=== PATIENT | male | born 1955 | race Caucasian/White ===

== ENCOUNTER 2017-11-09 05:01 | Day surgery (SDC) | payer MEDICARE ==
[~2017-11-09] VITALS: Ht 175.3 cm; Wt 121.1 kg
[2017-11-09] VITALS (14 sets, daily range): BP systolic 123–152; BP diastolic 68–87; Ht 175.3 cm; Wt 121.1 kg
--- NOTE | ~2017-11-09 | OP ---
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 PROCEDURE: Anterior cervical discectomy and fusion at C4-C5 with a separate anterior cervical plate and screws, PEEK interbody cage; and then an anterior cervical discectomy and fusion at C6-C7 was separate anterior cervical plate, PEEK interbody cage; Gina bone allograft with bone stem cells C6-C7 and C4-C5; removal of osteophytes at C4-C5 and C6-C7. SURGEON: Melyssa Wheeler MD PRIMARY CARE DOCTOR: Dr. Rodriguez in [place], [place]. DESCRIPTION OF TECHNIQUE: After induction of general endotracheal anesthesia, the patient was positioned supine on the operating table with interscapular roll. The neck was prepped and draped in usual sterile fashion. Fluoroscopic x-ray and [place] dissector localized the C4-C5 and C6-C7 interspaces. A transverse skin incision was carried out from midline to the sternocleidomastoid muscle. The platysma was divided with Bovie cautery. Using blunt and sharp dissection with Metzenbaum scissors, I proceeded in the avascular plane medial to the carotid sheath. The C4-C5 and C6-C7 interspaces were exposed given that the last longus colli muscles were elevated at C4-C5 and C6-C7. Self-retaining retractors placed at each level. The Weiner distracting pins were placed at the bodies of C4-C5 and C6-C7. The disc material was incised with a #11 blade at each interspace. The disc material was removed with pituitary rongeurs and curettes. The endplates were prepared at C4-C5 and C6-C7 with curettes. Posteriorly, a Midas-Jak drill and microscope were used to remove osteophyte cells of the posterior longitudinal ligament at C4-C5 and C6-C7. PEEK interbody cages were placed at each interspace under distraction with the Weiner distracting pins. A Zavation anterior cervical plate and screws was used to span the C4-C5 and C6-C7 interspaces. A separate plate was used for each level. Locking cams were tightened down over screw heads. Good position of the hardware was confirmed with fluoroscopic x-ray. Meticulous hemostasis was maintained throughout the wound. The wound was irrigated with copious amounts of Ancef irrigant solution. The platysma and subdermal layer were used to close the wound in interrupted layers. The skin was reapproximated with Steri-Strips and benzoin. A sterile dressing was applied to the wound. The patient was awakened in good condition and taken to recovery. All counts were reported as correct. Estimated blood loss was minimal. TRANSINT:[id number] Voice Confirmation ID: [id number] DOCUMENT ID: [id number] OPERATIVE REPORT [id number] WON GONGORA JR, JOHN MD at 1428 CC: [id number] DICTATION DATE: 11/15/17601 PICKER MACHINE OPERATOR: 11/15/17 1235 [facility] 11/10/[address] [address]
[2017-11-09 08:57] LABS: HEMATOCRIT 41.8 % (42.0-54.0); HEMOGLOBIN 14.3 g/dL (13.5-17.5); MCH 29.5 pg (26.0-34.0); MCHC 34.2 g/dL (31.0-37.0); MCV 86.2 fL (80.0-100.0); MEAN PLATELET VOLUME 9.3 fL (7.4-10.4); RBC 4.85 10x6/uL (4.20-6.10); RDW 13.6 % (11.5-14.5); WBC 9.1 10x3/uL (4.8-10.8)
[2017-11-09] MEDS ORDERED: MULTIPLE VITAMI1 TA1 PO (10:12)
[2017-11-09] MEDS ORDERED: NEURONTIN600 MG PO (10:13)
[2017-11-09] MEDS ORDERED: CYCLOBENZAPRINE10 MG PO (10:14)
[2017-11-09] MEDS ORDERED: OMEPRAZOLE20 M1 PO (10:15)
[2017-11-09] MEDS ORDERED: NORCO 7.5/325 T1 TA1 PO (10:15)
[2017-11-09] MEDS ORDERED: TOPAMAX25 MG PO (10:16)
[2017-11-09] MEDS ORDERED: NORVASC5 MG PO (10:16)
[2017-11-09] MEDS ORDERED: VASOTEC20 MG PO (10:16)
[2017-11-09] MEDS ORDERED: PAXIL30 MG PO (10:17)
[2017-11-09] MEDS ORDERED: COREG12.5 MG PO (10:18)
[2017-11-09] MEDS ORDERED: VALIUM10 MG PO (10:18)
[2017-11-09] MEDS ORDERED: STOOL SOFTENER100 M1 PO (10:18)
[2017-11-09] MEDS ORDERED: CARAFATE1 G PO (10:26)
[2017-11-09] MEDS ORDERED: GLUCOTROL 5 MG T5 MG PO (10:26)
[2017-11-09 10:55] LABS: ANION GAP 14.3 mmol/L (8-16); CALCIUM 8.3 mg/dL (8.5-10.1); CARBON DIOXIDE 24.5 mmol/L (21.0-32.0); CREATININE - SERUM 1.2 mg/dL (0.6-1.3); POTASSIUM - SERUM 3.8 mmol/L (3.5-5.1)
[2017-11-10] VITALS (9 sets, daily range): BP systolic 102–149; BP diastolic 59–73
[2017-11-10] MEDS ORDERED: HYDROCODONE-APA1 TAB PO (11:35)
== END 2017-11-10 12:40 | disposition home or self-care (01) ==
LOC: D.OPS 05:01 → D.CVICU 05:01 → D.OPS 08:29 → D.PAN 10:15 → D.OPS 10:15 → D.PAN 10:45 → D.OPS 11:45 → D.PAN 12:15 → D.CVICU 15:18 → D.OPS 15:18
PROVIDERS: Anesthesiology
DX: M25.78 Osteophyte, vertebrae (principal); Z98.1 Arthrodesis status; M50.223 Other cervical disc displacement at C6-C7 level; Z01.812 Encounter for preprocedural laboratory examination

== ENCOUNTER 2019-07-28 08:17 | Day surgery (SDC) | payer MEDICARE ==
[~2019-07-28] VITALS: Ht 172.7 cm; Wt 108.9 kg
--- NOTE | ~2019-07-28 | OP ---
PATIENT NAME: WON GONGORA JR MEDICAL RECORD: [id number] :55 LOCATION:[facility] ADMISSION DATE: SURGEON: MELYSSA WHEELER MD DATE OF OPERATION: 07/28/2019 PREOPERATIVE DIAGNOSES: Lumbar spinal stenosis and foraminal stenosis, L4-L5 on the left. SURGEON: Melyssa Wheeler MD NAME OF PROCEDURE: Left L4-L5 laminectomy, medial facetectomy and foraminotomy with METRx retractor L4-L5 on the left. DESCRIPTION AND TECHNIQUE: After induction of general endotracheal anesthesia, the patient was rolled prone on the Paco frame. The lumbar spine was prepped and draped in usual sterile fashion. Fluoroscopic x-ray and spinal needle localized the L4-L5 interspace on the left side. A series of dilators were used to advance a METRx retractor at the L4-L5 interspace on the left. The level was confirmed with fluoroscopic x-ray. A microscope and Midas Jak drill were used to perform laminotomy, medial facetectomy and foraminotomy at L4-L5 on the left. Hypertrophied ligamentum flavum was removed with Cloward rongeurs. The bone work set was extended laterally with Cloward rongeurs. Following the removal of the ligamentum flavum, the L4-L5 nerve roots appeared to be decompressed well. Meticulous hemostasis was maintained throughout the wound. Wound was irrigated with copious amounts of Ancef irrigant solution. The platysma and subdermal layer closed with a 3-0 Vicryl suture. The skin was reapproximated with Steri-Strips and benzoin. A sterile dressing was applied and the patient was awakened in good condition, taken to recovery. All counts reported as correct. Estimated blood loss was minimal. TRANSINT:[id number] Voice Confirmation ID: [id number] DOCUMENT ID: [id number] MELYSSA WHEELER MD CC: [id number] DICTATION DATE: 08/15/19 0753 POT BUILDER: 08/15/19 0855 [facility] 07/28/19 [place] [id number]
[~2019-07-28 08:17] MED LIST: CARAFATE1 G PO; COREG12.5 MG PO; CYCLOBENZAPRINE10 MG PO; GLUCOTROL 5 MG T5 MG PO; HYDROCODONE-APA1 TAB PO; LIPITOR10 MG PO; MULTIPLE VITAMI1 TA1 PO; NEURONTIN600 MG PO; NORCO 7.5/325 T1 TA1 PO; NORVASC5 MG PO; OMEPRAZOLE20 M1 PO; PAXIL30 MG PO; STOOL SOFTENER100 M1 PO; TOPAMAX25 MG PO; VALIUM10 MG PO; VASOTEC20 MG PO; ZANAFLEX4 MG PO
[2019-07-28 08:49] LABS: HEMATOCRIT 45.9 % (42.0-54.0); HEMOGLOBIN 15.1 g/dL (13.5-17.5); MCH 29.7 pg (26.0-34.0); MCHC 32.9 g/dL (31.0-37.0); MCV 90.4 fL (80.0-100.0); MEAN PLATELET VOLUME 9.4 fL (7.4-10.4); RBC 5.08 10x6/uL (4.20-6.10); RDW 13.3 % (11.5-14.5); WBC 8.4 10x3/uL (4.8-10.8)
[2019-07-28 08:55] LABS: ANION GAP 13.8 mmol/L (8-16); CALCIUM 9.1 mg/dL (8.5-10.1); CARBON DIOXIDE 27.5 mmol/L (21.0-32.0); CREATININE - SERUM 1.2 mg/dL (0.6-1.3); POTASSIUM - SERUM 4.3 mmol/L (3.5-5.1)
[2019-07-28 09:53] VITALS: BP 98/54; Ht 172.7 cm; Wt 108.9 kg
[2019-07-28] MEDS ORDERED: HYDROCODON-ACE1 EA10 PO (12:55)
--- NOTE | 2019-07-28 14:34 | NUR ---
1411-REC'D FROM RR. DROWSY,EASILY AROUSED WITH VERBAL STIMULI. DENIES PAIN. DRESSING TO BACK CDI. VSS-REQUIRING 3L/NC OF OXYGEN TO MAINTAIN PULSE OX. REVIEWED DISCHARGE CRITERIA WITH PT AND SON,AT BEDSIDE. CL IN EASY REACH. ICE WATER AT BEDSIDE IN EASY REACH.
--- NOTE | 2019-07-28 14:55 | NUR ---
1411-REMOVED INFILTRATED IV FROM RIGHT HAND WITH CATH INTACT,DISPOSED INTO SHARPS,COVERED WITH GUAZE,SECURED WITH MEDIPORE TAPE.
--- NOTE | 2019-07-28 14:56 | NUR ---
0355-FULL LIQUID TRAY TO ROOM. DISCOMFORT PAIN 2/10 TO BACK, DENIES RADIATING PAIN.
--- NOTE | 2019-07-28 17:31 | NUR ---
1515-REPORTS PAIN 5/10 TO INCISIONAL SITE OF BACK. SMALL SHADOW OF BLOOD TO DRESSING. VSS. IS ON ROOM AIR.NO DISTRESS. REQUEST PAIN MED BEFORE DISCHARGE DUE TO 1.[address]
--- NOTE | 2019-07-28 17:35 | NUR ---
1533-ADMINISTERED NORCO 10/325MG 1 BY MOUTH FOR INCISIONAL PAIN. RATES 5/10. DRESSING CONTINUE TO HAVE SMALL SHADOW OF BLOOD. NO ACTIVE BLEEDING. NO DISTRESS. RIGHT HAND WITH SOME EDEMA FROM IV INFILTRATION IN RR. INSTRUCTED TO ELEVATE AND APPLY WARM MOIST HEAT. CONTACT PCP IF WORSENING OF EDEMA,WARMTH TO TOUCH OR ANY INCREASE PAIN TO HAND. VERBALIZED UNDERSTANDING
--- NOTE | 2019-07-28 17:39 | NUR ---
1547-PT DRESSED. AMBULATED TO RESTROOM AND VOIDED WITHOUT COMPLICATIONS. DRESSING WITHOUT CHANGES. VSS. NO DISTRESS. VERY PLEASANT. REVIEWED POST OPERATIVE INSTRUCTIONS AND FOLLOW UP APPOINTMENT WITH DR. GHOSH WITH PT AND SON,WHOSE BEEN AT BEDSIDE. VERBALIZED UNDERSTANDING
--- NOTE | 2019-07-28 17:40 | NUR ---
1600-REPORTS DECREASE IN PAIN TO 3/10. ESCORTED OUT VIA W/C WITH SON AWAITING TO DRIVE HOME. ASSISTED PT INTO VEHICLE WITHOUT ANY COMPLICATINS. INSTRUCTED NOT TO BEND,STOOP OR ANY LIFTING GREATER THAN 5 LBS.
== END 2019-07-28 16:00 | disposition home or self-care (01) ==
LOC: D.OPS 08:17 → D.PAN 10:45 → D.OPS 16:00
PROVIDERS: Anesthesiology; ATTEND Neurological Surgery
DX: M54.16 Radiculopathy, lumbar region (principal); E11.9 Type 2 diabetes mellitus without complications; N28.9 Disorder of kidney and ureter, unspecified